=== PATIENT | female | born 1980 | race Caucasian/White ===

== ENCOUNTER → 2024-01-12 15:38 | Outpatient (REF) | payer BC, SELFPAY | LOC: HWWDC 15:38 | PROVIDERS: ATTENDING PHYSICIAN Obstetrics & Gynecology Gynecology; FAMILY PHYSICIAN Family Medicine | DX: Z12.31 Encounter for screening mammogram for malignant neoplasm of breast (principal) | CPT/HCPCS: 77063; 77067 ==

== ENCOUNTER → 2025-01-12 15:24 | Outpatient (REF) | payer BC, SELFPAY | LOC: WDC 15:24 | PROVIDERS: ATTENDING PHYSICIAN Obstetrics & Gynecology Gynecology | DX: Z12.31 Encounter for screening mammogram for malignant neoplasm of breast (principal) | CPT/HCPCS: 77063; 77067 ==

== ENCOUNTER → 2025-02-05 07:52 | Outpatient (REF) | payer BC, SELFPAY | LOC: WDC 07:52 | PROVIDERS: ATTENDING PHYSICIAN Obstetrics & Gynecology Gynecology; FAMILY PHYSICIAN Family Medicine | DX: R92.30 Dense breasts, unspecified (principal) | CPT/HCPCS: 76641 ==